=== PATIENT | male | born 1955 | race Caucasian/White ===

== ENCOUNTER 2021-05-08 07:19 | Outpatient (CLI) | payer MEDICARE, SELFPAY ==
[2021-05-08 07:38] VITALS: BMI 28.7
--- NOTE | 2021-05-08 07:38 | ECG_ITS ---
[facility] Test Date: 2021-05-08 Pat Name: Steve Ernst Department: Room: Gender: Male [employer] Supervisor: : 1955 Requested By: Dallin Mora Order Number: [id number] Susana MD: Lokesh Bermudez M.D. Interpretive Statements NAME OF STUDY: LEXISCAN SESTAMIBI STRESS TEST INDICATION: [Chest Pain, ] Procedure: At the baseline, the blood pressure was 105/76 mmHg with a heart rate of 64 bpm. The electrocardiogram showed normal sinus rhythm, normal axis with normal ST and T's. The Lexiscan was infused over a period of 20 seconds. A total of 0.4 mg of Lexiscan was infused. The stress phase was continued for a total of 5 minutes. Heart rate was at the end of stress phase was 81 bpm and a blood pressure of 135/76 mmHg. The EKG at the peak infusion revealed since normal sinus rhythm with no significant ST-T wave changes. Sestamibi was injected 20 seconds after the Lexiscan infusion. Blood pressure at the end of recovery phase was 132/80 mmHg with a heart rate of 75 bpm. Conclusion: 1. Normal EKG response to Lexiscan infusion 2. No Lexiscan induced chest pain or cardiac arrhythmia. 3. Normal blood pressure and heart rate response. 4. Sestamibi/sestamibi perfusion scan pending; see separate report. Electronically Signed On 06-25-2021 17:50:50 CDT by Lokesh Bermudez M.D. [email or web address]
--- NOTE | 2021-05-08 07:38 | NMCV_ITS ---
NM reed perf SPECT r/s* [id number] Steve Ernst Age: 65 Gender: M : 1955 Exam Date: 05/08/2021 08:28 Ordering Phys: Dallin Mora MD ([email or web address]) Technologist: SYED Demarco Exam Location: [facility] Indications: CHEST PAIN STRESS TEST Please see separate stress test report in [facility] for full findings IMAGE PROTOCOL Rest/Stress 1 Lexiscan Day Radiopharmaceutical Dose (mCi) Administration Site Administered by Rest: Tc-99m 10.7 IV SYED Garcia Sestamibi Stress:Tc-99m 32.4 IV SYED Demarco Sestaminoe Rest: 08-May-2021 60 Discovery 630 Stress: 08-May-2021 30 Discovery 630 0.4mg Lexiscan. Images obtained in supine and prone position. SPECT RESULTS Technical Quality: Excellent Raw Data Analysis: Normal Image Corrections: No attenuation or motion correction applied Summed Stress Score: 1 Summed Rest Score: 0 Summed Difference Score: 1 PERFUSION FINDINGS SPECT images demonstrate homogeneous tracer distribution throughout the myocardium. FUNCTIONAL RESULTS (calculated via Gated SPECT) Stress Image LV EF (%): 72 Stress EDV (mL):74 TID: 0.96 Stress ESV (mL):21 FUNCTIONAL FINDINGS: There is normal left ventricular systolic function. LV EF is normal IMPRESSIONS 1. Normal myocardial perfusion imaging with no evidence of ischemia 2. LV systolic function is normal Lokesh Bermudez MD (Electronically Signed) Final Date: 08 May 2021 12:30 S
[2021-05-08] MEDS: regadenoson 0.4 Mg/5 ml Syringe IVP (09:37)
[2021-05-08 09:44] VITALS: BP 132/80; PULSE 78
== END 2021-05-08 07:20 | disposition home or self-care (01) ==
LOC: RAD 07:28 → CDL 07:32
PROVIDERS: PCP Family Medicine; Visit Provider Internal Medicine Cardiovascular Disease
DX: R07.9 Chest pain, unspecified (principal); R06.02 Shortness of breath
CPT/HCPCS: 78452; 93017; A9500; J2785